=== PATIENT | female | born 1950 ===

== ENCOUNTER 2017-10-01 10:35 | Day surgery (SDC) | payer OTHER ==
[2017-09-30 07:10] VITALS: BMI 45.3
[2017-10-01] MEDS ORDERED: Propofol 10 mg/ml Inj (20 ML) ONE (11:41)
[2017-10-01] MEDS ORDERED: Midazolam 2 MG/2 ML VIAL ONE (11:44)
[2017-10-01] MEDS ORDERED: Sodium Chloride 0.9% 1,000 ML IV SCH (12:45)
[2017-10-01 13:01] VITALS: O2SAT 95
[2017-10-01 13:20] VITALS: BP 143/66; PULSE 65; RESP 19; TEMP 97.9
== END 2017-10-01 13:59 | disposition home or self-care (01) ==
LOC: ENDO 10:35
PROVIDERS: ATTEND Internal Medicine
DX: Z12.11 Encounter for screening for malignant neoplasm of colon (principal); K63.5 Polyp of colon; D12.4 Benign neoplasm of descending colon; K57.30 Diverticulosis of large intestine without perforation or abscess without bleeding; K64.8 Other hemorrhoids
CPT/HCPCS: 45380; 45385; 88305; J2250; J2704; J3010; J7040 ×2